=== PATIENT | female | born 1980 | race Caucasian/White ===

== ENCOUNTER 2017-09-21 06:48 | Day surgery (SDC) | payer OTHER ==
[2017-09-21 08:58] LABS: POTASSIUM 4.2 mmol/L (3.5-5.1)
[2017-09-21] MEDS ORDERED: MIDAZOLAM 1 MG/ML 2 ML INJ (11:21)
[2017-09-21] MEDS ORDERED: LIDOCAINE 1% (MDV) 20 ML INJ (11:21)
[2017-09-21] MEDS ORDERED: FENTAnyl 50 MCG/ML VIAL (11:21)
[2017-09-21] MEDS ORDERED: HEPARIN 1000 UNITS/ML 10 ML INJ (11:34)
[2017-09-21] MEDS ORDERED: IODIXANOL LOCM 50 ML BTL (11:34)
[2017-09-21] MEDS ORDERED: HEPARIN 1000 UNITS/NS (A-LINE) 1,000 ML (11:35)
== END 2017-09-21 12:30 | disposition home or self-care (01) ==
LOC: SDS 06:48
DX: N18.6 End stage renal disease (principal)
CPT/HCPCS: 36902; 84132; 84703